=== PATIENT | male | born 1995 | race Two or more races ===

== ENCOUNTER 2021-04-02 20:05 | Emergency (ER) | payer OTHER ==
[~2021-04-02] VITALS: Ht 180.3 cm; Wt 90.7 kg
== END 2021-04-03 01:37 | disposition home or self-care (01) ==
LOC: ER 20:05
DX: K80.80 Other cholelithiasis without obstruction (principal); Z03.818 Encounter for observation for suspected exposure to other biological agents ruled out

== ENCOUNTER → 2021-04-28 08:00 | Outpatient (CLI) | payer OTHER | END | disposition home or self-care (01) | LOC: ADM 07:00 → LAB 08:00 → EDSTATUS 05-02 07:00 → CIR.AMB 05-02 07:00 | PROVIDERS: ATTEND Surgery | DX: K80.20 Calculus of gallbladder without cholecystitis without obstruction (principal); Z01.812 Encounter for preprocedural laboratory examination; Z01.811 Encounter for preprocedural respiratory examination; Z01.810 Encounter for preprocedural cardiovascular examination; Z20.822 Contact with and (suspected) exposure to COVID-19; Z11.59 Encounter for screening for other viral diseases ==